=== PATIENT | female | born 1950 | race Caucasian/White ===

== ENCOUNTER 2017-09-17 11:56 | Inpatient (IN) ==
--- NOTE | 2017-09-16 18:24 | Discharge Summary ---
<Alana Reyes E - Last Filed: 09/16/17 18:21> Date of Encounter: 09/16/17 - Discharge Diagnosis (1) Arthritis of left knee Priority: Primary Status: Chronic (2) Gout Priority: Secondary Status: Chronic Qualifiers: Gout site: unspecified site Gout etiology: unspecified cause Chronicity: unspecified Qualified Code(s): M10.9 - Gout, unspecified (3) HTN (hypertension) Priority: Secondary Status: Chronic Qualifiers: Hypertension type: unspecified Qualified Code(s): I10 - Essential (primary ) hypertension (4) COPD (chronic obstructive pulmonary disease) Priority: Secondary Status: Chronic Qualifiers: COPD type: unspecified COPD Qualified Code(s): J44.9 - Chronic obstructive pulmonary disease, unspecified (5) CKD (chronic kidney disease), stage III Priority: Secondary Status: Chronic - Discharge Medications Home Medications: Aspirin Enteric Coated [Aspirin EC] 325 mg PO DAILY #21 tablet.dr 09/16/17 [Rx] OxyCODONE Immed Rel [Roxicodone 5 MG] 5 mg PO Q6HR PRN 7 Days #28 tablet [Rx] Ascorbate Calcium [Vitamin C] 500 mg PO DAILY 09/17/17 [History] Aspirin [Lo-Dose Aspirin EC] 81 mg PO DAILY 09/17/17 [History] Calcium Carbonate [Calcium] 600 mg PO DAILY 09/17/17 [History] Celecoxib [Celebrex] 200 mg PO DAILY 09/17/17 [History] Cholecalciferol (D-3) [Vitamin D] 1,000 unit PO DAILY 09/17/17 [History] Cyanocobalamin (Vitamin B-12) [Vitamin B-12] 1,000 mcg SL DAILY 09/17/17 [ History] Fluticasone/Salmeterol [Advair 100-50 Diskus] 2 puff IH BID 09/17/17 [History] Furosemide [Lasix] 40 mg PO DAILY 09/17/17 [History] Lisinopril [Zestril] 20 mg PO BID 09/17/17 [History] Metoprolol Succinate 50 mg PO DAILY 09/17/17 [History] Multivitamin [One Daily Essential] 1 tab PO DAILY 09/17/17 [History] [place]-3/Dha/Epa/Fish Oil [Fish Oil 1,000 mg Softgel] 1 cap PO DAILY 09/17/17 [ History] Potassium Chloride [Klor-Con 10] 10 meq PO BID 09/17/17 [History] Allergies/Adverse Reactions: 3 Allergy/AdvReac Type Severity Reaction Status Date / Time No Known Allergies Allergy Verified 09/17/17 12:41 Primary care physician: PCP NONE - Patient Status Disposition: Home, Self-Care Condition: Good - Discharge Instructions Follow Up With: Thong Flowers MD [Partnered Physician] - 10/17/17 4:00 pm Deborah Kelly MD [Non-Partnered Physician] - 09/27/17 8:30 am NONE,PCP [Primary Care Provider] - - Hospital Course Hospital course: Ms. Lamb is a 67 year old female - Time Spent with Patient Total time spent providing and/or coordinating discharge services: <Thong Flowers - Last Filed: 09/19/17 08:21> Date of Encounter: 09/19/17 Time of Encounter: 08:20 - Discharge Diagnosis (1) Arthritis of left knee Priority: Primary Status: Chronic (2) Gout Priority: Secondary Status: Chronic Qualifiers: Gout site: unspecified site Gout etiology: unspecified cause Chronicity: unspecified Qualified Code(s): M10.9 - Gout, unspecified (3) HTN (hypertension) Priority: Secondary Status: Chronic Qualifiers: Hypertension type: unspecified Qualified Code(s): I10 - Essential (primary ) hypertension (4) COPD (chronic obstructive pulmonary disease) Priority: Secondary Status: Chronic Qualifiers: COPD type: unspecified COPD Qualified Code(s): J44.9 - Chronic obstructive pulmonary disease, unspecified (5) CKD (chronic kidney disease), stage III Priority: Secondary Status: Chronic (6) Status post total left knee replacement Priority: Primary Status: Acute (7) Acute blood loss anemia Status: Acute Primary care physician: PCP NONE - Patient Status Functional capacity at discharge: uses cane/walker Overall status at discharge: patient is progressing back to baseline - Hospital Course Hospital course: Ms. Lamb is a 67 year old female status post left total knee replacement. Patient with asymptomatic acute blood loss anemia. The patient had an uneventful postoperative course. They received antibiotics and physical therapy and were discharged in stable condition. There will follow -up in the office in 2 weeks. - Time Spent with Patient Total time spent providing and/or coordinating discharge services:
--- NOTE | 2017-09-16 18:26 | Physician Discharge Referral ---
Home Health/Hosp Referral Info Transfer to: Home Health Attending Provider: Dr Thong Flowers - Diagnosis (1) Arthritis of left knee Priority: Secondary Status: Chronic (2) Gout Priority: Secondary Status: Chronic (3) HTN (hypertension) Priority: Secondary Status: Chronic (4) COPD (chronic obstructive pulmonary disease) Priority: Secondary Status: Chronic (5) CKD (chronic kidney disease), stage III Priority: Secondary Status: Chronic (6) Status post total left knee replacement Priority: Primary Status: Acute - Respiratory Orders Smoking Cessation: Smoking cessation has been advised. For more information, call the [place] Tobacco Quit Line at 6-889-MKAZ-NOW. - Dressing/Wound Care Site: left knee Type of Dressing/Treatments w/Frequency: Opsite placed. Keep dressing intact until first follow up appointment. If > 50% saturated, notify office, remove dressing and place appropriate dressing back in place. Dressing is water resistant, not water-proof. OK to shower, but do not get dressing wet. - Diet/Nutrition Diet/Nutrition Orders: Regular - Activity Activity Orders: Up ad jaun, Ambulate, Chair, Walker Activity: List: Total Knee replacement Precautions x 6 weeks Apply cold therapy wrap 3-6x/day for 20 minutes at a time. Encourage ambulation throughout the day and incentive spirometer 10x/hour. Elevate affected extremity above heart as tolerated. Brace: Wear knee immobilizer at night x 2 weeks. - Services Needed Following services are medically necessary services: Nursing, Home Health Aide, Physical Therapy, Occupational Therapy - Transfer Medications Prescriptions: OxyCODONE Immed Rel [Roxicodone 5 MG] 5 mg PO Q6HR PRN 7 Days #28 tablet PRN Reason: Pain Aspirin Enteric Coated [Aspirin EC] 325 mg PO DAILY #21 tablet. Home Medications: Aspirin Enteric Coated [Aspirin EC] 325 mg PO DAILY #21 tablet. 09/16/17 [Rx] OxyCODONE Immed Rel [Roxicodone 5 MG] 5 mg PO Q6HR PRN 7 Days #28 tablet [Rx] Allergies/Adverse Reactions: 3 Allergy/AdvReac Type Severity Reaction Status Date / Time No Known Allergies Allergy Unverified 09/04/17 15:50 Certification: Further, I certify that my clinical findings support that this patient is homebound (i.e. absences from home require considerable and taxing effort and are for medical reasons or [employer] services or infrequently or short duration when for other reasons) because: Homebound Reason: Post-surgery restriction and or conditions limit ability to leave home Attestation: My signature below is to certify that this patient is under my care and that I, or nurse practitioner, or a physician surveyor instrument assistant working with me, has a face-to- face encounter with this patient.
[2017-09-17] MEDS ORDERED: Albuterol 2.5 MG/3 ML NEBULIZER IH ONE (12:13)
[2017-09-17] MEDS ORDERED: CeFAZolin Syr 2,000MG/20 ML 2,000 MG/20 ML SYRINGE IVPB ONE (12:13)
[2017-09-17] MEDS ORDERED: Ringers Solution, Lactated 1,000 ML IVC SCH ×3 (12:15→17:33)
--- NOTE | 2017-09-17 12:42 | History & Physical Report ---
Date of Encounter: 09/17/17 Time of Encounter: 12:42 24 Hour HP Update - Instructions Instructions: If the History and Physical is less than 30 days old and was completed prior to A.M. admission and or procedure and has NOT been updated on calendar day of procedure please complete this update prior to performing procedure. - Update Patient reports changes in Medical Condition: No Changes in examination, assessment, or condition: No Changes in Medication: No Preop tests/diagnostics Reviewed: Yes Surgery Remains Indicated: Yes Consent for Planned Operative Procedure(s) Verified: Yes - Pre-Operative Checklist Preoperative Checklist Indicated: No Prophylactic Antibiotic Ordered: Yes Is VTE Prophylaxis Indicated?: Yes
--- NOTE | 2017-09-17 12:42 | Anesthesia Evaluation PreOp ---
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 09/16/17 [Rx] OxyCODONE Immed Rel [Roxicodone 5 MG] 5 mg PO Q6HR PRN 7 Days #28 tablet [Rx] 3 Allergy/AdvReac Type Severity Reaction Status Date / Time No Known Allergies Allergy Verified 09/17/17 12:41 - Meds/Allergy Pre-op Review Medications Reviewed: Yes Allergies Reviewed: Yes Beta Blockers on Current Med List: Yes (took this am) Anesthesia Results - Labs Laboratory Tests 09/04/17 09/04/17 16:04 16:04 Hgb 12.0 Hct 36.7 Plt Count 263 Sodium 140 Potassium 4.6 H Chloride 104 Carbon Dioxide 28 BUN/Creatinine Ratio 20 - Imaging EKG: image reviewed (sinus rhythm) Anesthesia Exam Weight: 68 kg NPO (# of Hours): over 8 hours - HEENT Pupil (Motor): Pupils equal Mallampati: II Teeth: Normal Oral Opening: Greater than 3 - Cardiac Rhythm: Regular Murmur: Systolic - Pulmonary Breath Sounds: bilateral Clear Respiratory Effort: Symmetrical Anesthesia Assess/Plan ASA Score: 2 Modified Lelo Scale for Level of Consciousness: Cooperative, oriented, and tranquil Anesthetic Plan: General Monitoring Plan: Standard Monitors Recovery Plan: PACU (Discussed GA and femoral nerve block. Risks and benefits. Agreed to proceed.)
[2017-09-17] MEDS ORDERED: Dexamethasone 4 MG/ML VIAL ONE (13:40)
[2017-09-17] MEDS ORDERED: *HR* FentaNYL (PF) 100 MCG/2 ML VIAL ONE (13:40)
[2017-09-17] MEDS ORDERED: Ondansetron 4 MG/2 ML VIAL ONE (13:40)
[2017-09-17] MEDS ORDERED: Lidocaine -MPF 2% 2 ML VIAL ONE (13:40)
[2017-09-17] MEDS ORDERED: *HR* Propofol 200 MG/20 ML VIAL IVP ONE (13:41)
[2017-09-17] MEDS ORDERED: *HR* Midazolam HCl 2 MG/2 ML VIAL ONE (13:41)
[2017-09-17] MEDS ORDERED: Ondansetron 4 MG/2 ML VIAL IVP ONE (13:50)
[2017-09-17] MEDS ORDERED: *HR* Labetalol 20 MG/4 ML SYRINGE IVP PRN (13:50)
[2017-09-17] MEDS ORDERED: Bupivacaine/Clonidine Syringe 1 EACH SYRINGE ONE (14:01)
[2017-09-17] MEDS ORDERED: ROPIVACAINE HCL/PF 0.5% 30 ML VIAL ONE (14:01)
[2017-09-17] MEDS ORDERED: Ethanol\\Acetic Acid\\Na Ace\\Ben 1,000 ML IRRIG.SOLN IR ONE (14:17)
--- NOTE | 2017-09-17 14:29 | Anesthesia Procedures ---
Date of Encounter: 09/17/17 Time of Encounter: 12:05 Procedures: Anesthesia - Nerve Block Procedure Date: 09/17/17 Time: 14:05 Allergies/Adv Reactions: nka Pre-op Diagnosis: left knee arthritis Surgical Procedure: left total knee Checklist: Correct Patient Identifier, Correct procedure, History checked (with Thong Pearson CRNA) Correct side: Left Blood Thinner: No Monitor Applied: EKG, BP, Pulse Oximetry Supplemental Oxygen via Nasal Cannula (L/min): 2 Sedation: Versed (mg): 2 Sedation: Fentanyl (mcg): 100 Indication: Post Op Analgesia Pre-op Neuro Deficits: No Block Type: Femoral, Other (I PAC) Catheter placed: No Sterile Technique: Yes Ultrasound used: Yes Anatomy identified: Yes Visual spread of Local: Yes Neuro Stimulation: Yes Nerve Stimulator Range: 0.2 - 0.4 mA Blood on Needle Aspiration: No Smooth Injection of Local: Yes Pain with Injection of Local: No Prep: Chlorhexadine Needle: 22 x 50 mm Stimuplex, 21 x 100 mm Stimuplex Local: 0.25% Bupivicaine w/Clonidine 20 mcg/cc (20 ml for I PAC), Ropivacaine ( 0.5% 30 ml for femoral) Volume (cc): 50 Number of Attempts: 1 Complications: None/effective block Vitals: 3 Vital Signs Time 1405 1415 BP 170/77 135/58 Pulse 66 64 Resp 16 16 O2 Sat 100 100
--- NOTE | 2017-09-17 15:40 | Orthopedic Operative Note ---
Date of procedure: 09/17/17 Pre-op diagnosis: left knee arthritis Post-op diagnosis: same Procedure: Procedure: Left Total knee replacement Estimated blood loss: 300 cc Hardware: Metal and polyethylene replacement. Arthrex Femur: 5 Tibia: 5 PS insert: 14 Patella:34 Exam Under anesthesia: Normal Procedural Notes: Grade 4 athritic changes medial compartment and patellofemoral joint Operative procedure: The patient was brought to the operating room and placed on the operating room table. After general anesthesia was administered the operative knee was examined. Findings were noted in the exam under anesthesia. The operative extremity was prepped and draped in sterile surgical fashion. The patient received IV antibiotics prior to skin incision. A standard midline incision was made centered over the patella. The incision was made through the skin and subcutaneous tissue. A medial parapatellar tendon approach was performed. Care was taken to preserve tissue along the medial aspect of the patella. And to protect the patella tendon. The deep MCL was released off the medial tibia. The infra patella fat pad was excised. Knee was brought into flexion. Patient noted to have grade 4 arthritic changes medial compartment and patellofemoral joint. The entry hole was made for the intramedullary femoral guide. The guide was seated in 6 degrees of valgus. Anterior cut was made followed by the distal cut. The ACL the PCL the medial and the lateral menisci were excised. The tibia was subluxed forward. The entry hole was made for the intramedullary tibial guide. Guide was seated to resect 2 mm off the more abnormal side. The knee was brought into flexion the distal femur was sized 5. The femoral guide was seated , the anterior cut was made followed by the posterior condylar cut, followed by the chamfer cuts. The finishing guide was seated the box cut was made and the lug holes were drilled. The tibia was sized 5, the tibial tray was seated and prepared with the large drill followed by the fin cutter. Trial reduction revealed full extension no varus valgus instability with the appropriate 14 PS Tania. The patella was everted and cut was made at the level of the insertion of the quadriceps and patella tendon. The patella was sized 34 the guide was seated and the lug holes are drilled. Trial reduction revealed excellent patella tracking. All trial components were removed all bony surfaces were irrigated. The tibia was cemented first followed by the femur. 14 PS Tania was seated and the knee was brought into full extension. The patella was cemented and held in place with the patellar holding clamp. After the cement had hardened, the knee sat for 2 minutes with a Betadine saline solution. The knee was closed by the PA. The knee was then irrigated out with 2 L of pulse irrigation. The extensor mechanism was closed with #2 FiberWire suture and #2 PDS suture. The subcutaneous tissue was then irrigated and closed deep with #1 PDS suture superficially with 0 PDS suture and skin was closed with skin jet. The patient was then placed in a sterile dressing and a postoperative brace extubated and transferred to recovery room in stable condition. Anesthesia: GETA Surgeon: Thong Flowers Condition: stable Disposition: PACU
[2017-09-17] MEDS: *HR* HYDROmorphone (PF) 1 MG/ML SYRINGE IVP PRN ×3 (16:09→16:34)
[2017-09-17 16:26] LABS: Hematocrit 31.4 % (35.3-44.9); Hemoglobin 10.3 g/dL (11.5-15.4)
[2017-09-17] MEDS ORDERED: Acetaminophen IV 1,000 MG/100 ML INFUS..BTL IVPB ONE (16:33)
--- NOTE | 2017-09-17 17:13 | Anesthesia Evaluation Post Op ---
Date of Encounter: 09/17/17 Time of Encounter: 17:00 - Vital Signs Vital Signs: Vital Signs/O2 Sat/Glucose, Most Current Temp Pulse Resp BP Pulse Ox 09/17/17 16:53 60 16 138/55 99 09/17/17 16:43 53 16 133/35 100 09/17/17 16:33 97.6 F 60 16 139/62 98 09/17/17 16:23 56 16 139/62 100 09/17/17 16:13 65 16 135/63 100 09/17/17 16:03 98.8 F 63 16 111/58 98 09/17/17 14:49 58 16 129/59 100 09/17/17 14:34 62 16 124/54 100 09/17/17 14:19 64 16 135/58 99 09/17/17 13:52 65 16 170/77 100 - Lungs Lungs: Clear Ascult./Percussion - Airway Airway: Non-obstructed - Cardiovascular Baseline Rhythm - Mental Status Mental Status: Asleep with brisk response to light stimulation - Pain Pain Scale: 5 Pain Scale used: Numeric (1 - 10) - Nausea Vomiting Nausea Vomiting: Not Present - Hydration Hydration: Ice chips (Declines), Has not voided - Discharge PostOp Status: Transfer Patient to floor Anes Supervising Prov Stmt: Pt seen/evaluated, VSS and pt has met criteria for discharge to floor. - MD Tommy
[2017-09-17] MEDS ORDERED: CeFAZolin Premix DUPLEX 2,000 MG/50 ML BAG IVPB SCH (17:33)
[2017-09-17] MEDS ORDERED: Naloxone 0.4 MG/ML INJ IVP PRN (17:33)
[2017-09-17] MEDS ORDERED: *HR* Enoxaparin 30 MG/0.3 ML SYRINGE SQ SCH (18:00)
[2017-09-17] MEDS: Ondansetron 4 MG/2 ML VIAL IVP PRN (18:04)
[2017-09-17] MEDS: *HR* Enoxaparin 30 MG/0.3 ML SYRINGE SQ SCH (18:06)
[2017-09-17] MEDS: Budesonide/Formoterol 80/4.5 MDI IH SCH (20:02)
[2017-09-17] MEDS: Lisinopril 20 MG TABLET PO SCH (20:20)
[2017-09-17] MEDS ORDERED: MOM Conc 10 ML UD.LIQ PO PRN (21:00)
[2017-09-17] MEDS ORDERED: Temazepam 15 MG CAPSULE PO PRN (21:00)
[2017-09-17] MEDS ORDERED: Sennosides 8.6 MG TABLET PO PRN (21:00)
[2017-09-18] MEDS: CeFAZolin Premix DUPLEX 2,000 MG/50 ML BAG IVPB SCH ×2 (00:15→06:39)
[2017-09-18] MEDS: *HR* HYDROmorphone (PF) 1 MG/ML SYRINGE IVP PRN ×3 (00:16→08:35)
[2017-09-18] MEDS: *HR* OxyCODONE Immed Rel 5 MG TABLET PO PRN ×3 (04:34→22:22)
[2017-09-18] MEDS: *HR* Enoxaparin 30 MG/0.3 ML SYRINGE SQ SCH ×2 (05:54→17:40)
[2017-09-18] MEDS: Ondansetron 4 MG/2 ML VIAL IVP PRN (05:54)
[2017-09-18 05:59] LABS: BUN/Creatinine Ratio 18 (6-26); Blood Urea Nitrogen 19 mg/dL (7-20); Calcium 8.5 mg/dL (8.6-10.8); Carbon Dioxide 23 mEq/L (19-29); Chloride 107 mEq/L (98-109); Glucose 145 mg/dL (70-99); Osmolality,Calculated 297 (280-300); Potassium 4.7 mEq/L (3.5-4.5); Sodium 141 mEq/L (136-145); eGFR For African Americans > 60 (> 60); eGFR For Non-African Americans 52 (> 60)
[2017-09-18 06:12] LABS: Hematocrit 34.7 % (35.3-44.9); Hemoglobin 10.8 g/dL (11.5-15.4)
--- NOTE | 2017-09-18 07:20 | Orthopedics Progress Note ---
Date of Encounter: 09/18/17 Time of Encounter: 07:19 - Assessment and Plan (1) Arthritis of left knee Current Visit: No Status: Chronic (2) Gout Current Visit: No Status: Chronic Qualifiers: Gout site: unspecified site Gout etiology: unspecified cause Chronicity: unspecified Qualified Code(s): M10.9 - Gout, unspecified (3) HTN (hypertension) Current Visit: No Status: Chronic Qualifiers: Hypertension type: unspecified Qualified Code(s): I10 - Essential (primary ) hypertension (4) COPD (chronic obstructive pulmonary disease) Current Visit: No Status: Chronic Qualifiers: COPD type: unspecified COPD Qualified Code(s): J44.9 - Chronic obstructive pulmonary disease, unspecified (5) CKD (chronic kidney disease), stage III Current Visit: No Status: Chronic (6) Status post total left knee replacement Current Visit: No Status: Acute Subjective Interval history: Patient was seen this morning doing well without complaints. Afebrile vital signs stable. Operative extremity: Neurovascularly intact Dressing clean dry and intact Calves nontender Assessment and plan: Continue with postoperative care Hematocrit 34 Objective Vital signs: Vital Signs Temp Pulse Resp BP Pulse Ox 09/18/17 06:44 98.1 F 60 16 147/61 100 09/18/17 04:17 97.9 F 64 16 154/63 100 09/17/17 20:10 97.5 F L 56 16 119/49 100 09/17/17 20:03 16 98 09/17/17 19:10 97.5 F L 55 16 131/51 96 09/17/17 18:10 97.6 F 55 16 124/53 100 09/17/17 17:58 97.8 F 55 16 132/53 96 09/17/17 17:37 97.5 F L 54 16 139/54 97 09/17/17 16:53 60 16 138/55 99 09/17/17 16:43 53 16 133/35 100 09/17/17 16:33 97.6 F 60 16 139/62 98 09/17/17 16:23 56 16 139/62 100 09/17/17 16:13 65 16 135/63 100 09/17/17 16:03 98.8 F 63 16 111/58 98 09/17/17 14:49 58 16 129/59 100 09/17/17 14:34 62 16 124/54 100 09/17/17 14:19 64 16 135/58 99 09/17/17 13:52 65 16 170/77 100 09/17/17 12:44 98.2 F 64 18 176/78 99 Intake and Output 09/17/17 09/17/17 09/18/17 15:59 23:59 07:59 Intake Total 1150 / 1150 150 / 150 Output Total 300 / 300 600 / 600 Balance -300 / -300 1150 / 1150 -450 / -450 Intake: IV Fluids 1100 / 1100 50 / 50 Lactated Ringers 1,000 ML @ 25 1000 / 1000 mls/hr IVC .Q24H RICHARD Rx#: [id number] Ofirmev 1,000 mg/100 ml 1,000 100 / 100 mg In 100 ml @ 400 mls/hr IVPB ONCE ONE Rx#:[id number] Ancef Premix DUPLEX 2,000 mg In 50 / 50 50 ml @ 100 mls/hr IVPB Q8H RICHARD Rx#:[id number] Oral 50 / 50 100 / 100 Output: Urine 0 / 0 600 / 600 Estimated Blood Loss 300 / 300 Other: Weight 68.492 kg - Labs CBC & BMP: 09/18/17 05:21 09/18/17 05:21 Labs: Abnormal lab results Hgb 10.8 g/dL (11.5-15.4) L 09/18/17 05:21 Hct 34.7 % (35.3-44.9) L 09/18/17 05:21 Potassium 4.7 mEq/L (3.5-4.5) H 09/18/17 05:21 Est GFR (Non-Af Amer) 52 (> 60) L 09/18/17 05:21 Glucose 145 mg/dL (70-99) H 09/18/17 05:21 Calcium 8.5 mg/dL (8.6-10.8) L 09/18/17 05:21 - VTE Documentation of Mechanical Device: Venous foot pump, device Consult Discharge Plan - Plan Referrals: NONE,PCP [Primary Care Provider] -
[2017-09-18] MEDS ORDERED: Scopolamine Patch 1.5 MG PATCH.TD72 TD ONE (08:32)
[2017-09-18] MEDS ORDERED: (Omega-3/Dha/Epa/Fish Oil [Fish Oil 1,000 Mg Softgel] PO SCH (09:00)
[2017-09-18] MEDS ORDERED: *HR* Promethazine 25 MG/ML VIAL IVP PRN ×2 (10:20→16:55)
[2017-09-18] MEDS: Multivit/Ca/Min/Fe/FA 1 TAB TABLET PO SCH (10:54)
[2017-09-18] MEDS: Furosemide 40 MG TABLET PO SCH (10:54)
[2017-09-18] MEDS: Aspirin Enteric Coated 81 MG Tablet PO SCH (10:54)
[2017-09-18] MEDS: Metoprolol XL (24 HR) Succ 50 MG TAB.ER.24H PO SCH (10:54)
[2017-09-18] MEDS: Cyanocobalamin (B-12) 1,000 MCG TABLET PO SCH (10:55)
[2017-09-18] MEDS: Ascorbic Acid 500 MG TABLET PO SCH (10:55)
[2017-09-18] MEDS: Cholecalciferol (D-3) 1,000 UNIT TABLET PO SCH (10:55)
[2017-09-18] MEDS: Lisinopril 20 MG TABLET PO SCH (10:55)
[2017-09-18] MEDS: Budesonide/Formoterol 80/4.5 MDI IH SCH ×2 (11:09→20:45)
[2017-09-18 13:03] LABS: BUN/Creatinine Ratio 15 (6-26); Blood Urea Nitrogen 16 mg/dL (7-20); Carbon Dioxide 21 mEq/L (19-29); Chloride 106 mEq/L (98-109); Glucose 145 mg/dL (70-99); Osmolality,Calculated 296 (280-300); Sodium 141 mEq/L (136-145); eGFR For African Americans > 60 (> 60); eGFR For Non-African Americans 52 (> 60)
[2017-09-18 13:05] LABS: Potassium 5.5 mEq/L (3.5-4.5)
[2017-09-18] MEDS ORDERED: 0.9 % Sodium Chloride 500 ML IVC ONE (13:26)
[2017-09-18] MEDS ORDERED: 0.9 % Sodium Chloride 500 ML ONE (13:29)
--- NOTE | 2017-09-18 13:37 | Event Note ---
Date of Encounter: 09/18/17 Time of Encounter: 12:50 PCR- POD#1 LEFT TKR 09/17 MAYI PCR - Patient seen at bedside. Son at bedside. Patient oriented to person and place but not to time. Patient has been experiencing significant uncontrolled nausea with vomiting through the morning hours. Tried Zofran and Scopolamine patch without relief. Phenergan administered with good control of n/v however now experiencing some confusion - suspect dosing of Phenergan to be part of the problem as well as frequent dosing of Dilaudid as patient has been unable to take anything PO secondary to vomiting. On exam patient is wrapped in 3 blankets sitting in chair and shivering stating she is cold. Operative extremity: no calf tenderness , erythema or warmth. Pulses equal BLE. Pain control: Adequate with Dilaudid Participating in PT. All questions and concerns addressed. Educated on use of incentive spirometer, ambulation, and hydration. Patient educated on post-operative restrictions and care. Addressed: Repeat BMP for check re: confusion and hyperemisis - Dr. Flowers notified of patient status change. D/C plan: - [facility] pending therapy recommendations.
[2017-09-18] MEDS: Acetaminophen IV 1,000 MG/100 ML INFUS..BTL IVPB PRN ×2 (14:45→23:53)
[2017-09-18] MEDS: Ketorolac 30 MG/ML VIAL IVP PRN (17:37)
--- NOTE | 2017-09-18 19:53 | Internal Medicine Consult Note ---
Date of Encounter: 09/18/17 Time of Encounter: 16:00 - Assessment and Plan (1) Status post total left knee replacement Current Visit: Yes Status: Acute Assessment and plan: Acute pain and discomfort post total left knee replacement. Pt. reports pain that has increased after PT intervention. Pt. denies SOB, chest pain, or hx of DVT/PE. Stair-step pain medication for pain management. Toradol 30 mg IVP every 6 PRN for breakthrough pain. Monitor pt. for signs of pain as well as HTN and tachycardia r/t uncontrolled pain. Continuous cardiac telemetry. Pt. at moderate risk for further morbidity based on current pain, N/V, and mildly AMS. (2) Nausea and vomiting Current Visit: Yes Status: Acute Assessment and plan: Acute N/V. Pt. reports Zofran and scopolamine patch ineffective. Phenergan 12.5 mg IVP Q6 PRN. Qualifiers: Vomiting type: cyclical vomiting Vomiting Intractability: non-intractable Qualified Code(s): G43.A0 - Cyclical vomiting, not intractable (3) HTN (hypertension) Current Visit: Yes Status: Chronic Assessment and plan: Hx of chronic HTN. Monitor pt. and VS. Continue patient's metoprolol and lisinopril. Qualifiers: Hypertension type: essential hypertension Qualified Code(s): I10 - Essential (primary) hypertension (4) COPD (chronic obstructive pulmonary disease) Current Visit: Yes Status: Chronic Assessment and plan: Hx of chronic COPD. Denies use of home O2. Will continue pts. inhaler. Supplemental O2 and SpO2 monitoring PRN. Qualifiers: COPD type: unspecified COPD Qualified Code(s): J44.9 - Chronic obstructive pulmonary disease, unspecified (5) Asthma Current Visit: Yes Status: Chronic Assessment and plan: Hx of mild, intermittent asthma. Continue pts. Advair. Supplemental O2 and SpO2 monitoring PRN. Qualifiers: Asthma severity: mild Asthma persistence: intermittent Asthma complication type: uncomplicated Qualified Code(s): J45.20 - Mild intermittent asthma, uncomplicated (6) Arthritis Current Visit: Yes Status: Chronic Assessment and plan: Hx of chronic arthritis. Hold patient's Celebrex for now and administer stair- step pain medication for pain management. (7) DVT prophylaxis Current Visit: Yes Status: Acute Assessment and plan: Lovenox 30 mg Q12HR for DVT prophylaxis. Monitor pt. for signs of bleeding. Internal Medicine - CN: HPI - Data of Consult Consult date: 09/18/17 Requesting Physician: Thong Flowers MD - Consult Narrative History of present illness: Ms. Lamb is a 67 year old female with medical hx of HTN, arthritis, asthma, and COPD presents post surgery for left total knee replacement. Pt. is experiencing altered mental status, uncontrolled nausea, and vomiting post surgery. Patient states she has been able to control her nausea and vomiting yesterday evening and through the morning hours today with Zofran IVP scopolamine patch not providing relief. She states Phenergan was effective in controlling her nausea and vomiting. Patient also states she is mildly confused since the surgery which is most likely due to pain medication combination. Patient denies chest pain, palpitations, fever, chills, changes in vision, abdominal pain, diarrhea, constipation, headache, weakness, fatigue, numbness, tingling, dizziness, presyncope, or syncope. Past Med Surg Social Fam HX - Past Medical History Source: patient, old records reviewed Medical history: arthritis, asthma, COPD, hypertension Psychiatric history: no psych history - Past Surgical History Surgical History: knee replacement (Left total) - Social History Smoking Status: Never smoker Smokeless Tobacco Status: No Alcohol use: none Drug use: none Current living situation: Home Activity Level: Independent ambulation Recent Out of Country Travel Within the Last 8 Weeks: No Exposure or Possible Exposure to Illness During Travel: No - Family History Father History Unknown: Yes Race: Family Member Ethnicity: Non- Hx Family Autoimmune Disorders: Yes (Lupus) Mother Race: Family Member Ethnicity: Non- Living Status: Age at : 62 Cause of : IA Hx Family Cardiac Disorders: Yes (IA) Brother Race: Family Member Ethnicity: Non- Living Status: Age at : 28 Cause of : AIDS Hx Family Autoimmune Disorders: Yes (AIDS) Sister Race: Family Member Ethnicity: Non- Living Status: Still Living Hx Family Endocrine Disorder: Yes (DM) - Constitutional Constitutional: as per HPI - EENT Eyes: as per HPI Ears: as per HPI Nose, mouth and throat: as per HPI - Breasts Breasts: as per HPI - Cardiovascular Cardiovascular ROS IM: as per HPI - Respiratory Respiratory: as per HPI - Gastrointestinal Gastrointestinal: as per HPI, nausea, vomiting - Genitourinary Genitourinary: as per HPI Menstruation: as per HPI - Musculoskeletal Musculoskeletal ROS IM: as per HPI, arthralgias - Integumentary Integumentary IM: as per HPI - Neurological Neurological ROS: as per HPI, confusion - Psychiatric Psychiatric: as per HPI - Endocrine Endocrine IM: as per HPI - Hematologic/Lymphatic Hematologic/Lymphatic: as per HPI - Allergic/Immunologic Allergic/Immunologic: as per HPI Internal Medicine - CN: Meds Aspirin Enteric Coated [Aspirin EC] 325 mg PO DAILY #21 tablet.dr 09/16/17 [Rx] OxyCODONE Immed Rel [Roxicodone 5 MG] 5 mg PO Q6HR PRN 7 Days #28 tablet [Rx] Ascorbate Calcium [Vitamin C] 500 mg PO DAILY 09/17/17 [History] Aspirin [Lo-Dose Aspirin EC] 81 mg PO DAILY 09/17/17 [History] Calcium Carbonate [Calcium] 600 mg PO DAILY 09/17/17 [History] Celecoxib [Celebrex] 200 mg PO DAILY 09/17/17 [History] Cholecalciferol (D-3) [Vitamin D] 1,000 unit PO DAILY 09/17/17 [History] Cyanocobalamin (Vitamin B-12) [Vitamin B-12] 1,000 mcg SL DAILY 09/17/17 [ History] Fluticasone/Salmeterol [Advair 100-50 Diskus] 2 puff IH BID 09/17/17 [History] Furosemide [Lasix] 40 mg PO DAILY 09/17/17 [History] Lisinopril [Zestril] 20 mg PO BID 09/17/17 [History] Metoprolol Succinate 50 mg PO DAILY 09/17/17 [History] Multivitamin [One Daily Essential] 1 tab PO DAILY 09/17/17 [History] [place]-3/Dha/Epa/Fish Oil [Fish Oil 1,000 mg Softgel] 1 cap PO DAILY 09/17/17 [ History] Potassium Chloride [Klor-Con 10] 10 meq PO BID 09/17/17 [History] 3 Allergy/AdvReac Type Severity Reaction Status Date / Time No Known Allergies Allergy Verified 09/17/17 12:41 Internal Medicine - CN: Exam - Constitutional Vitals: Temp Pulse Resp BP Pulse Ox 98.6 F 89 15 118/60 93 09/18/17 19:44 09/18/17 19:44 09/18/17 19:44 09/18/17 19:44 09/18/17 19:44 General appearance IM: Present: cooperative, A&O X 2 (Person and place only), mild distress (Left knee pain), pleasant, answers questions appropriately - Head Head exam: Present: normal inspection - Eye Eye exam: Present: normal appearance, PERRL, conjuntiva pink Pupils: Present: normal accommodation, PERRL - ENT ENT exam: Present: normal exam, normal external ear exam - Neck Neck exam general surgery: Present: normal inspection, supple, trachea midline - Respiratory Respiratory exam: Present: CTAB - Cardiovascular Cardiovascular exam IM: Present: RRR, +S1, +S2 - GI/Abdominal GI/Abdominal exam IM: Present: normal bowel sounds, soft, no peritoneal signs - Rectal Rectal exam: Present: deferred - Additional comments: exam deferred. - Extremities Exam Extremities exam IM: Present: warm, radial pulses palpable and symmetrical - Expanded Lower Extremities Exam Knee exam IM: Present: erythema, swelling, tenderness (Left knee) - Back Exam Back exam: Present: normal inspection - Neurological Exam Neurological exam: Present: altered (Mildly), strengths equal and symetr throughout - Psychiatric Psychiatric exam: Present: normal affect, normal mood - Skin Skin exam IM: Present: dry, erythema (Left knee), intact Internal Medicine - CN: Reslt - Labs CBC & Chem 7: 09/18/17 05:21 09/18/17 12:41 Labs: Short CBC 09/18/17 Range/Units 05:21 Hgb 10.8 L (11.5-15.4) g/dL Hct 34.7 L (35.3-44.9) % BMP 09/18/17 09/18/17 05:21 12:41 Sodium 141 141 Potassium 4.7 H 5.5 H Chloride 107 106 Carbon Dioxide 23 21 BUN 19 16 Creatinine 1.06 1.06 Glucose 145 H 145 H Calcium 8.5 L 9.0 - EKG Data EKG shows normal: sinus rhythm - EKG Data Prior EKG available for review: no EKG comments: 09/18/17 20:01 EKG dated 09/18/17 shows sinus rhythm with possible left atrial enlargement and borderline ECG. - Impressions Impressions Chest/Abdomen X-ray 09/18/17 13:48 IMPRESSION: Nonspecific bowel gas pattern. No acute cardiopulmonary disease. D/ / Luis E Ward MD / Luis E Ward MD Interpreting Provider: Luis E Ward MD - Diagnostic Studies Chest x-ray Additional comments: Impressions Chest/Abdomen X-ray 09/18/17 13:48 IMPRESSION: Nonspecific bowel gas pattern. No acute cardiopulmonary disease. D/ / Luis E Ward MD / Luis E Ward MD Interpreting Provider: Luis E Ward MD Consult Discharge Plan - Plan Referrals: Thong Flowers MD [Partnered Physician] - 10/17/17 4:00 pm Deborah Kelly MD [Non-Partnered Physician] - 09/27/17 8:30 am NONE,PCP [Primary Care Provider] -
[2017-09-19 05:29] LABS: Hematocrit 25.9 % (35.3-44.9)
[2017-09-19 05:37] LABS: Hemoglobin 8.8 g/dL (11.5-15.4)
[2017-09-19] MEDS: *HR* OxyCODONE Immed Rel 5 MG TABLET PO PRN ×3 (05:39→14:59)
[2017-09-19] MEDS: *HR* Enoxaparin 30 MG/0.3 ML SYRINGE SQ SCH ×2 (05:39→17:27)
[2017-09-19 05:40] LABS: Calcium 8.7 mg/dL (8.6-10.8)
[2017-09-19 05:44] LABS: Potassium 5.4 mEq/L (3.5-4.5)
--- NOTE | 2017-09-19 07:59 | Event Note ---
Date of Encounter: 09/18/17 Time of Encounter: 19:00 Discussed with SAIRA and agree with assessment and plan. Monitoring overnight; nausea/vomiting and hyperkalemia
[2017-09-19] MEDS: Budesonide/Formoterol 80/4.5 MDI IH SCH ×2 (08:06→20:46)
--- NOTE | 2017-09-19 08:22 | Orthopedics Progress Note ---
Date of Encounter: 09/19/17 Time of Encounter: 08:22 - Assessment and Plan (1) Arthritis of left knee Current Visit: No Status: Chronic (2) Gout Current Visit: No Status: Chronic Qualifiers: Gout site: unspecified site Gout etiology: unspecified cause Chronicity: unspecified Qualified Code(s): M10.9 - Gout, unspecified (3) HTN (hypertension) Current Visit: No Status: Chronic Qualifiers: Hypertension type: unspecified Qualified Code(s): I10 - Essential (primary ) hypertension (4) COPD (chronic obstructive pulmonary disease) Current Visit: Yes Status: Chronic Qualifiers: COPD type: unspecified COPD Qualified Code(s): J44.9 - Chronic obstructive pulmonary disease, unspecified (5) CKD (chronic kidney disease), stage III Current Visit: No Status: Chronic (6) Status post total left knee replacement Current Visit: Yes Status: Acute (7) Acute blood loss anemia Current Visit: Yes Status: Acute Subjective Interval history: Patient was seen this morning doing well without complaints. Afebrile vital signs stable. Operative extremity: Neurovascularly intact Dressing clean dry and intact Calves nontender Assessment and plan: Continue with postoperative care hemoglobin 8.8 asymptomatic dc today Objective Vital signs: Vital Signs Temp Pulse Resp BP Pulse Ox 09/19/17 06:57 98.2 F 83 14 129/51 97 09/18/17 20:48 18 96 09/18/17 19:44 98.6 F 89 15 118/60 93 09/18/17 16:32 98.2 F 83 15 184/67 97 09/18/17 11:50 98.1 F 64 15 168/70 96 Intake and Output 09/18/17 09/19/17 09/19/17 23:59 07:59 15:59 Intake Total 100 / 100 150 / 150 Output Total 900 / 900 600 / 600 Balance -800 / -800 -450 / -450 Intake: IV Fluids 100 / 100 Ofirmev 1,000 mg/100 ml 1,000 100 / 100 mg In 100 ml @ 400 mls/hr IVPB Q6HR PRN Rx#:[id number] Oral 100 / 100 50 / 50 Output: Urine 900 / 900 600 / 600 Other: # Voids 1 - Labs CBC & BMP: 09/19/17 05:17 09/19/17 05:17 Labs: Abnormal lab results Hgb 8.8 g/dL (11.5-15.4) L D 09/19/17 05:17 Hct 25.9 % (35.3-44.9) L 09/19/17 05:17 Potassium 5.4 mEq/L (3.5-4.5) H 09/19/17 05:17 Creatinine 1.17 mg/dL (0.57-1.11) H 09/19/17 05:17 Est GFR ( Amer) 56 (> 60) L 09/19/17 05:17 Est GFR (Non-Af Amer) 46 (> 60) L 09/19/17 05:17 Glucose 110 mg/dL (70-99) H 09/19/17 05:17 - VTE Documentation of Mechanical Device: Venous foot pump, device Consult Discharge Plan - Plan Referrals: Thong Flowers MD [Partnered Physician] - 10/17/17 4:00 pm Deborah Kelly MD [Non-Partnered Physician] - 09/27/17 8:30 am NONE,PCP [Primary Care Provider] -
[2017-09-19] MEDS: Multivit/Ca/Min/Fe/FA 1 TAB TABLET PO SCH (08:24)
[2017-09-19] MEDS: Furosemide 40 MG TABLET PO SCH (08:24)
[2017-09-19] MEDS: Cholecalciferol (D-3) 1,000 UNIT TABLET PO SCH (08:24)
[2017-09-19] MEDS: Metoprolol XL (24 HR) Succ 50 MG TAB.ER.24H PO SCH (08:24)
[2017-09-19] MEDS: Aspirin Enteric Coated 81 MG Tablet PO SCH (08:24)
[2017-09-19] MEDS: Cyanocobalamin (B-12) 1,000 MCG TABLET PO SCH (08:24)
[2017-09-19] MEDS: Ascorbic Acid 500 MG TABLET PO SCH (08:24)
[2017-09-19] MEDS: Ketorolac 30 MG/ML VIAL IVP PRN (08:29)
[2017-09-19] MEDS ORDERED: *HR* HYDROmorphone (PF) 1 MG/ML SYRINGE IVP ONE (09:27)
--- NOTE | 2017-09-19 13:08 | Event Note ---
Date of Encounter: 09/19/17 Time of Encounter: 11:40 09/19/17 - POD#2 LEFT TKR 09/17 MAYI PCR - Patient seen at bedside. Son at bedside. Patient oriented to person and place and time. Labs: H/H 8.8/25.9, K 5.4 Hospitalist on board, switched pain medication from dilaudid to toradol Nausea and vomiting have resolved. Confusion improved. Pain control: Adequate Participating in PT. All questions and concerns addressed. Educated on use of incentive spirometer, ambulation, and hydration. Patient educated on post-operative restrictions and care. Addressed: see above D/C plan: therapy recommends HH - [facility]
--- NOTE | 2017-09-19 14:17 | Internal Med Progress Note ---
Date of Encounter: 09/19/17 Time of Encounter: 09:00 - Assessment and plan (1) Hyperkalemia Current Visit: Yes Status: Acute Assessment and plan: Hold K supplements. Will give kayexalate 30 mg oral. Her kidney function is a little worse than yesterday. I think we may give a little of fluids back. She is already on LR. check labs in am. (2) CKD (chronic kidney disease), stage III Current Visit: No Status: Chronic Assessment and plan: seems to be around baseline. creatinine is a little worse than yesterday.c/w LR 75 cc/hr (3) Status post total left knee replacement Current Visit: Yes Status: Acute Assessment and plan: management per primary. c/w pain control (4) HTN (hypertension) Current Visit: Yes Status: Chronic Assessment and plan: blood pressure is stable. c/w toprol XL and lasix 40 mg daily Qualifiers: Hypertension type: essential hypertension Qualified Code(s): I10 - Essential (primary) hypertension (5) DVT prophylaxis Current Visit: Yes Status: Acute Assessment and plan: lovenox 30 mg Q12 hrs per primary (6) Nausea and vomiting Current Visit: Yes Status: Acute Assessment and plan: seems to be doing better. c/w symptomatic control. Qualifiers: Vomiting type: cyclical vomiting Vomiting Intractability: non-intractable Qualified Code(s): G43.A0 - Cyclical vomiting, not intractable (7) Acute blood loss anemia Current Visit: Yes Status: Acute Assessment and plan: Expected post op. Will continue to monitor. labs in am. No need for transfusions now - Subjective Interval history: No acute events. pain is better. She is more awake - Constitutional Vitals: Temp Pulse Resp BP Pulse Ox 98.7 F 90 15 104/51 99 09/19/17 11:35 09/19/17 11:35 09/19/17 11:35 09/19/17 11:35 09/19/17 11:35 General appearance: Present: cooperative, A&O X 2 (Person and place only), mild distress (Left knee pain), pleasant, answers questions appropriately Exam: GEN: NAD CVS: RRR. S1, S2, No m/r/g RESP: CTAB ABD: Soft, NT, ND, +BS EXT: No edema. 2+ DP NEURO: Nonfocal Internal Medicine: Result - Labs CBC & Chem 7: 09/19/17 05:17 09/19/17 05:17 Labs: Short CBC 09/19/17 Range/Units 05:17 Hgb 8.8 L D (11.5-15.4) g/dL Hct 25.9 L (35.3-44.9) % BMP 09/19/17 05:17 Sodium 137 Potassium 5.4 H Chloride 106 Carbon Dioxide 20 BUN 17 Creatinine 1.17 H Glucose 110 H Calcium 8.7 - Impressions Impressions Chest/Abdomen X-ray 09/18/17 13:48 IMPRESSION: Nonspecific bowel gas pattern. No acute cardiopulmonary disease. D/ / Luis E Ward MD / Luis E Ward MD Interpreting Provider: Luis E Ward MD - VTE Documentation of Mechanical Device: Venous foot pump, device Consult Discharge Plan - Plan Referrals: Thong Flowers MD [Partnered Physician] - 10/17/17 4:00 pm Deborah Kelly MD [Non-Partnered Physician] - 09/27/17 8:30 am NONE,PCP [Primary Care Provider] -
--- NOTE | 2017-09-19 19:15 | Electrocardiograph Report ---
[place] [id number] Test Date: 2017-09-18 Pat Name: Luisa Lamb Department: 114 Room: [facility] Gender: F Child Advocate: [facility] : 1950 Requested By: Alana Reyes Order Number: [id number] Reading MD: Jya Pugh DO Measurements Intervals [place] Rate: 84 P: 74 NV: 192 QRS: 49 QRSD: 73 T: 51 QT: 355 QTc: 396 Interpretive Statements SINUS RHYTHM POSSIBLE LEFT ATRIAL ENLARGEMENT Electronically Signed On 09-19-2017 19:13:27 EST by Jay Pugh DO
[2017-09-20] MEDS: *HR* OxyCODONE Immed Rel 5 MG TABLET PO PRN ×2 (02:03→08:36)
[2017-09-20] MEDS: *HR* Enoxaparin 30 MG/0.3 ML SYRINGE SQ SCH (05:43)
[2017-09-20 07:08] LABS: BUN/Creatinine Ratio 14 (6-26); Blood Urea Nitrogen 15 mg/dL (7-20); Calcium 8.2 mg/dL (8.6-10.8); Carbon Dioxide 26 mEq/L (19-29); Chloride 104 mEq/L (98-109); Glucose 111 mg/dL (70-99); Osmolality,Calculated 292 (280-300); Sodium 140 mEq/L (136-145); eGFR For African Americans > 60 (> 60); eGFR For Non-African Americans 52 (> 60)
[2017-09-20 07:10] LABS: Potassium 3.7 mEq/L (3.5-4.5)
[2017-09-20] MEDS: Budesonide/Formoterol 80/4.5 MDI IH SCH (07:49)
[2017-09-20] MEDS: Aspirin Enteric Coated 81 MG Tablet PO SCH (08:35)
[2017-09-20] MEDS: Metoprolol XL (24 HR) Succ 50 MG TAB.ER.24H PO SCH (08:35)
[2017-09-20] MEDS: Cholecalciferol (D-3) 1,000 UNIT TABLET PO SCH (08:36)
[2017-09-20] MEDS: Multivit/Ca/Min/Fe/FA 1 TAB TABLET PO SCH (08:36)
[2017-09-20] MEDS: Ascorbic Acid 500 MG TABLET PO SCH (08:36)
[2017-09-20] MEDS: Cyanocobalamin (B-12) 1,000 MCG TABLET PO SCH (08:36)
[2017-09-20] MEDS: Furosemide 40 MG TABLET PO SCH (08:36)
--- NOTE | 2017-09-20 11:00 | Orthopedics Progress Note ---
Date of Encounter: 09/20/17 Time of Encounter: 11:00 - Assessment and Plan (1) Arthritis of left knee Current Visit: No Status: Chronic (2) Gout Current Visit: No Status: Chronic Qualifiers: Gout site: unspecified site Gout etiology: unspecified cause Chronicity: unspecified Qualified Code(s): M10.9 - Gout, unspecified (3) HTN (hypertension) Current Visit: No Status: Chronic Qualifiers: Hypertension type: unspecified Qualified Code(s): I10 - Essential (primary ) hypertension (4) COPD (chronic obstructive pulmonary disease) Current Visit: Yes Status: Chronic Qualifiers: COPD type: unspecified COPD Qualified Code(s): J44.9 - Chronic obstructive pulmonary disease, unspecified (5) CKD (chronic kidney disease), stage III Current Visit: No Status: Chronic (6) Status post total left knee replacement Current Visit: Yes Status: Acute (7) Acute blood loss anemia Current Visit: Yes Status: Acute Subjective Interval history: Patient was seen this morning doing well without complaints. Afebrile vital signs stable. Operative extremity: Neurovascularly intact Dressing clean dry and intact Calves nontender Assessment and plan: Continue with postoperative care potassium normalized dc today Objective Vital signs: Vital Signs Temp Pulse Resp BP Pulse Ox 09/20/17 07:49 16 98 09/20/17 07:16 98.7 F 97 15 154/72 97 09/20/17 04:34 98.6 F 106 17 132/53 95 09/19/17 23:26 99.1 F 97 17 129/63 95 09/19/17 20:47 18 94 09/19/17 19:22 99.4 F 99 18 155/67 94 09/19/17 15:36 98.6 F 92 16 128/75 98 09/19/17 11:35 98.7 F 90 15 104/51 99 Intake and Output 09/19/17 09/20/17 09/20/17 23:59 07:59 15:59 Intake Total 400 / 400 Balance 400 / 400 Intake: Oral 400 / 400 Other: Stool Size Moderate Stool Consistency loose Stool Color Brown # Voids 1 1 - Labs CBC & BMP: 09/19/17 05:17 09/20/17 06:35 Labs: Abnormal lab results Hgb 8.8 g/dL (11.5-15.4) L D 09/19/17 05:17 Hct 25.9 % (35.3-44.9) L 09/19/17 05:17 Est GFR (Non-Af Amer) 52 (> 60) L 09/20/17 06:35 Glucose 111 mg/dL (70-99) H 09/20/17 06:35 Calcium 8.2 mg/dL (8.6-10.8) L 09/20/17 06:35 - VTE Documentation of Mechanical Device: Venous foot pump, device Consult Discharge Plan - Plan Referrals: Thong Flowers MD [Partnered Physician] - 10/17/17 4:00 pm Deborah Kelly MD [Non-Partnered Physician] - 09/27/17 8:30 am NONE,PCP [Primary Care Provider] -
[2017-09-20] MEDS: Ketorolac 30 MG/ML VIAL IVP PRN (11:11)
[2017-09-20 11:44] VITALS: BP 118/58
--- NOTE | 2017-09-20 11:47 | Internal Med Progress Note ---
Date of Encounter: 09/20/17 Time of Encounter: 11:40 - Assessment and plan (1) Hyperkalemia Current Visit: Yes Status: Acute Assessment and plan: Hold K supplements for next two days. Hyperkalemia resolved. f/u with PCP and have repeat labs then. (2) CKD (chronic kidney disease), stage III Current Visit: No Status: Chronic Assessment and plan: seems to be around baseline today. f/u with pcp (3) Status post total left knee replacement Current Visit: Yes Status: Acute Assessment and plan: management per primary. c/w pain control (4) HTN (hypertension) Current Visit: Yes Status: Chronic Assessment and plan: blood pressure is stable. c/w toprol XL and lasix 40 mg daily Qualifiers: Hypertension type: essential hypertension Qualified Code(s): I10 - Essential (primary) hypertension (5) DVT prophylaxis Current Visit: Yes Status: Acute Assessment and plan: lovenox 30 mg Q12 hrs per primary (6) Nausea and vomiting Current Visit: Yes Status: Acute Assessment and plan: Resolved Qualifiers: Vomiting type: cyclical vomiting Vomiting Intractability: non-intractable Qualified Code(s): G43.A0 - Cyclical vomiting, not intractable (7) Acute blood loss anemia Current Visit: Yes Status: Acute Assessment and plan: Expected post op. stable Ok to d/c from medicine standpoint - Subjective Interval history: No acute events. Feels well. Had BM. Afebrile. Potassium corrected. - Constitutional Vitals: Temp Pulse Resp BP Pulse Ox 97.2 F L 87 16 118/58 94 09/20/17 11:42 09/20/17 11:42 09/20/17 11:42 09/20/17 11:42 09/20/17 11:42 General appearance: Present: cooperative, A&O X 2 (Person and place only), mild distress (Left knee pain), pleasant, answers questions appropriately Exam: GEN: NAD CVS: RRR. S1, S2, No m/r/g RESP: CTAB ABD: Soft, NT, ND, +BS EXT: No edema. 2+ DP, No rashes NEURO: Nonfocal Internal Medicine: Result - Labs CBC & Chem 7: 09/19/17 05:17 09/20/17 06:35 Labs: BMP 09/20/17 06:35 Sodium 140 Potassium 3.7 D Chloride 104 Carbon Dioxide 26 BUN 15 Creatinine 1.05 Glucose 111 H Calcium 8.2 L - VTE Documentation of Mechanical Device: Venous foot pump, device Consult Discharge Plan - Plan Instructions: Aspirin (By mouth), Oxycodone, Rapid Release (By mouth), Total Knee Replacement (DC), Hyperkalemia (DC) Referrals: Thong Flowers MD [Partnered Physician] - 10/17/17 4:00 pm Deborah Kelly MD [Non-Partnered Physician] - 09/27/17 8:30 am NONE,PCP [Primary Care Provider] -
== END 2017-09-20 14:00 | disposition home or self-care (01) | DRG 470 ==
LOC: SAMDAY 11:56 → 3NENU 17:31
PROVIDERS: ADMIT Orthopaedic Surgery; ATTEND Orthopaedic Surgery